=== PATIENT | female | born 1990 ===

== ENCOUNTER 2018-01-07 10:44 | Outpatient (CLI) | payer OTHER | END 2018-01-07 11:18 | disposition home or self-care (01) | LOC: LAB 10:44 | DX: N30.00 Acute cystitis without hematuria (principal) ==

== ENCOUNTER 2023-11-24 09:58 | Outpatient (CLI) | payer OTHER | END 2023-11-24 10:58 | disposition home or self-care (01) | LOC: NST 09:58 | PROVIDERS: ATTEND Obstetrics & Gynecology | DX: Z34.83 Encounter for supervision of other normal pregnancy, third trimester (principal) ==

== ENCOUNTER 2023-11-29 14:17 | Outpatient (CLI) | payer OTHER | END 2023-11-29 14:47 | disposition home or self-care (01) | LOC: NST 14:17 | PROVIDERS: ATTEND Obstetrics & Gynecology | DX: Z34.83 Encounter for supervision of other normal pregnancy, third trimester (principal) ==

== ENCOUNTER 2023-11-30 09:35 | Inpatient (IN) | payer OTHER ==
[~2023-11-30] VITALS: Ht 167.6 cm; Wt 95.3 kg
[2023-11-30 10:13] LABS: HEMATOCRIT 37.7 % (36.0-45.00); HEMOGLOBIN 13.3 g/dL (12.0-15.00); MEAN CELL VOLUME 85.7 fL (80.00-100.00); MEAN CORPUSCULAR HEMOGLOBIN 30.2 pg (27.00-32.0); MEAN CORPUSCULAR HGB CONC 35.3 g/dl (32.0-36.0); PLATELET COUNT 205 K/uL (150-450); RED CELL DISTRIBUTION WIDTH 13.7 % (11.5-14.5)
[2023-11-30] MEDS ORDERED: ERYTHROMYCIN BASE 1 GM TUBE OP SCH (10:30)
[2023-11-30] MEDS ORDERED: RINGERS SOLUTION,LACTATED 1,000 ML IV SCH (10:30)
[2023-11-30] MEDS ORDERED: OxyCODONE HCL/APAP UD (PERCOCET) PO PRN (10:30)
[2023-11-30] MEDS ORDERED: MAGNESIUM SULFATE IN WATER 0.04 GM/ML IV.SOLN IV SCH ×2 (10:30→22:15)
[2023-11-30] MEDS ORDERED: OXYTOCIN 1,000 ML IV SCH (10:30)
[2023-11-30] MEDS ORDERED: AMPICILLIN SODIUM 2,000 MG VIAL IV ONE (10:30)
[2023-11-30] MEDS ORDERED: CHLORHEXIDINE GLUCONATE 120 ML BOTTLE TOP SCH (10:30)
[2023-11-30 10:35] LABS: INR < 0.93; PARTIAL THROMBOPLASTIN TIME 27.9 SECONDS (22.0-34.0); PROTHROMBIN TIME 9.3 SECONDS (9.0-11.5)
[2023-11-30 10:44] LABS: ABG PH 7.315 (7.35-7.45); ABG PO2 27.7 mmHg (80-100); ABG pCO2 43.4 mmHg (35-45); BASE EXCESS -4.5 mmol/l; BICARBONATE 21.6 mmol/l (23-25); SaO2 44.2 %; Tco2 22.9 mmol/l; o2 21 %
[2023-11-30 10:54] LABS: ALBUMIN 2.6 gm/dL (3.4-5.0); BILIRUBIN TOTAL 0.33 mg/dL (0.3-1.2); CALCIUM 8.5 mg/dL (8.5-10.1); CREATININE SERUM 0.57 mg/dL (0.55-1.02); GFR 123.71; GLOBULINA 3.3 G/DL (2.4-3.5); POTASSIUM 3.88 mEq/L (3.5-5.1); TOTAL PROTEIN 5.9 gm/dL (6.4-8.2)
[2023-11-30] MEDS ORDERED: LABETALOL HCL 100 MG/20 ML ML IV PUSH ONE (11:00)
[2023-11-30] MEDS ORDERED: MAGNESIUM SULFATE IN WATER 100 ML IV ONE (11:00)
[2023-11-30] MEDS ORDERED: LABETALOL HCL 200 MG TABLET PO SCH ×2 (11:15→21:00)
[2023-11-30] MEDS ORDERED: LIDOCAINE HCL 1% 10ML VIAL IJ ONE (11:15)
[2023-12-01] MEDS ORDERED: LABETALOL HCL 100 MG TABLET PO SCH (09:00)
== END 2023-12-02 12:58 | disposition home or self-care (01) | DRG 807 ==
LOC: OB/GYN 09:35 → LDR 09:35 → OB/GYN 11:19
PROVIDERS: Obstetrics & Gynecology Maternal & Fetal Medicine; ADMIT Obstetrics & Gynecology; ATTEND Obstetrics & Gynecology
PROC: 10E0XZZ Delivery of Products of Conception, External Approach (ICD-10-PCS; principal; 2023-11-30)
PROC: 0HQ9XZZ Repair Perineum Skin, External Approach (ICD-10-PCS; 2023-11-30)
PROC: 0UQG7ZZ Repair Vagina, Via Natural or Artificial Opening (ICD-10-PCS; 2023-11-30)
PROC: 4A1HXCZ Monitoring of Products of Conception, Cardiac Rate, External Approach (ICD-10-PCS; 2023-11-30)
DX: O70.1 Second degree perineal laceration during delivery (principal); Z37.0 Single live birth; Z3A.38 38 weeks gestation of pregnancy; Z20.822 Contact with and (suspected) exposure to COVID-19